=== PATIENT | male | born 1965 | race Caucasian/White ===

== ENCOUNTER 2016-05-03 11:04 | Inpatient (IN) | payer OTHER ==
[2016-05-03] MEDS ORDERED: IOPAMIDOL 370 (76%) IV.SOLN 150 ML IV ONE (11:05)
[2016-05-03 12:20] LABS: ABSOLUTE NEUTROPHIL COUNT 2.8 K/mm3 (1.8-7.7); BASO % 0.2 % (0.2-1.0); HEMATOCRIT 37.3 % (32.0-52.0); HEMOGLOBIN 11.7 gm/l (14.0-18.0); IMM NEUT% 0.2 % (0-1); LYMPH # 1.7 (1.0-4.8); MEAN CELL VOLUME 88.2 fl (80.0-94.0); MEAN CORPUSCULAR HEMOGLOBIN 27.7 pg (27.0-31.0); MEAN CORPUSCULAR HGB CONC 31.4 g/dl (33.0-37.0); MEAN PLATELET VOLUME 9.7 fl (7.4-10.4); MONO # 0.5 (0.0-0.8); MONO % 9.1 % (4-12); NEUT % 56.5 % (43-75); PLATELET COUNT 196 K/mm3 (130-400); RED CELL DISTRIBUTION WIDTH 12.8 % (11.5-14.5)
[2016-05-03 13:08] LABS: I-STAT CREATININE 0.8 mg/dL (0.6-1.3)
--- NOTE | 2016-05-03 14:00 | US ---
LEFT LOWER EXTREMITY VENOUS ULTRASOUND HISTORY: Erythema and swelling left lower leg, multiple ulcerative lesions. Sonography of the left lower extremity was performed, with a focus on the venous structures. FINDINGS: COMMON FEMORAL VEIN: Patent and compressible. SUPERFICIAL FEMORAL VEIN: Patent and compressible. POPLITEAL VEIN: Patent and compressible. PROXIMAL CALF VEINS: Patent and compressible. RESPIRATORY AUGMENTATION OF FLOW: Present. ABNORMAL FLUID COLLECTIONS: None identified. IMPRESSION: No sonographic evidence of left lower extremity deep venous thrombosis. Findings discussed with Dr. Leos of the Emergency Medicine clinical service on 05/03/2016 at 1357 hours.
[2016-05-03] MEDS ORDERED: VANCOMYCIN HCL 1.5 G in SODIUM CHLORIDE 0.9% 500 ML IV ONE (15:00)
--- NOTE | 2016-05-03 15:24 | CT ---
CTA ILIOFEMORAL RUNOFF HISTORY: Nonhealing lower extremity wounds. Following intravenous administration of 150 cc Isovue 370, contiguous axial images acquired from the lung bases to the proximal portion of the lower legs. Subsequent run performed through the lower legs. Three-dimensional imaging was not performed. COMPARISON: None. FINDINGS: ABDOMINAL AORTA: Normal caliber. Moderate atherosclerotic plaque. CELIAC TRUNK: No high grade stenosis. SUPERIOR MESENTERIC ARTERY: No high grade stenosis. RENAL ARTERIES: Single arteries bilaterally with early branching on the right. No high grade stenosis. INFERIOR MESENTERIC ARTERY: Moderate ostial narrowing. COMMON ILIAC ARTERIES: Moderate atherosclerotic calcifications, no high-grade stenosis. EXTERNAL ILIAC ARTERIES: No high grade stenosis. COMMON FEMORAL ARTERIES: No high grade stenosis. SUPERFICIAL FEMORAL ARTERIES: Multifocal plaque without high grade stenosis. POPLITEAL ARTERIES: No high grade stenosis. TRIFURCATION VESSELS: Limited evaluation on the left due to extensive venous contamination. To these limits, obvious high-grade stenosis is not identified. LOWER EXTREMITY SOFT TISSUES: Diffuse soft tissue swelling of the left lower leg, ankle and foot. Bilateral venous varicosities are identified, left greater than right. No associated rim enhancing fluid collection. SOFT TISSUE ASSESSMENT: No gross mass effect. Moderate fecal load, findings compatible with prior appendectomy. 1.1 cm right renal cyst. Enhancing inguinal lymph nodes measuring up to 2.7 cm in size at the left inguinal region, up to 2.4 cm in size on the right. A left external iliac node measures 3.4 cm in size. A left common iliac node measures 1.5 cm in size with increased number of retroperitoneal lymph nodes. OSSEOUS STRUCTURES: Mild dextroconvex curvature of the thoracolumbar spine. IMPRESSION: 1. To the limits of venous contamination at the left lower leg, no high-grade stenosis or occlusion of the aortoiliac tree or the lower extremity arterial structures. 2. Asymmetric soft tissue swelling of the left lower extremity with bilateral inguinal and left-sided pelvic adenopathy, cellulitis is possible. 3. Prominent venous collaterals, left greater than right. 4. Normal abdominal aortic caliber. Findings discussed with Dr. Wagner of the Emergency Medicine clinical service on 05/03/2016 at 1521 hours.
[2016-05-03 16:12] LABS: ALB/GLOB RATIO 0.9 (>1.0); ALBUMIN 3.4 gm/dL (3.5-5.7); CALCIUM 9.8 mg/dL (8.6-10.3)
[2016-05-03 16:15] LABS: C-REACTIVE PROTEIN 1.8 mg/dl (<1.0)
[2016-05-03] MEDS ORDERED: VANCOMYCIN HCL 0 G in SODIUM CHLORIDE 0.9% 275 ML IV SCH (16:40)
[2016-05-03] MEDS ORDERED: BISACODYL 5 MG TABLET.EC PO PRN (16:40)
[2016-05-03] MEDS ORDERED: MENTHOL/CETYLPYRD 1 EACH LOZENGE PO PRN (16:40)
[2016-05-03] MEDS ORDERED: MAGNESIUM HYDROXIDE 30 ML UDCUP PO PRN (16:40)
[2016-05-03] MEDS ORDERED: BLISTEX LIPSTICK 1 EACH TP PRN (16:40)
[2016-05-03] MEDS ORDERED: BISACODYL 10 MG SUP PR PRN (16:40)
[2016-05-03] MEDS ORDERED: SODIUM CHLORIDE 0.9% 100 ML IV PRN (16:40)
[2016-05-03 17:11] VITALS: BMI 23.8
[2016-05-03] MEDS: ENOXAPARIN SODIUM 40 MG/0.4 ML SYRINGE SUB-Q SCH (17:40)
[2016-05-03] MEDS: SODIUM CHLORIDE 0.9% 1,000 ML IV SCH (19:47)
[2016-05-03] MEDS: DOCUSATE SODIUM 100 MG CAPSULE PO SCH (20:29)
[2016-05-03] MEDS: CLOTRIMAZOLE 1% 15 APPLIC/15 G CREAM TP SCH (20:29)
--- NOTE | 2016-05-03 20:32 | HP ---
PEMA LEVY [id number] CHIEF COMPLAINT: Left leg ulceration, with increased swelling and redness of the left leg. HISTORY OF PRESENT ILLNESS: The patient is a 50-year-old male with a history of chronic venous stasis with recurrent ulcerations primarily involving his left lower extremity. He has been getting wound care at the [facility] for the last couple of weeks when he was noted to have increased drainage, redness and swelling of the left leg. He was referred to the hospital for further evaluation. Cultures of his wounds were done. He is well known to the [facility]. He was successfully able to get his wounds healed in January, but sometime in the last couple of weeks his wounds reopened-up. He states he hit his leg against a log. He is a poor historian. He has a history of developmental delay and makes his history difficult to obtain. REVIEW OF SYSTEMS: Negative for any fevers or chills. No recent upper respiratory symptoms, cough, dyspnea, wheezing, chest pain, shortness of breath or palpitations. He denies any complaints of abdominal pain, nausea, vomiting, diarrhea or constipation. No arthralgias. No urinary complaints. No headaches, fainting, blackouts or seizures. Review of systems is otherwise negative. PAST MEDICAL HISTORY: Significant for: 1. A prior hospitalization in 2006 for leg ulceration and suspected infection. He has been treated by Dr. Aurelio Sainz in the past. He has been to a counter tacker. There is no evidence of any arterial insufficiency. 2. He has a history of developmental delay. 3. He had epilepsy as a child, but he has been off his seizure medications successfully now for some time. ALLERGIES: 1. Neosporin. 2. He has developed allergic reactions to Unna boots in the past. 3. He has been sensitive to tape in the past. CURRENT MEDICATIONS: None. FAMILY HISTORY: Significant for some diabetes in the family. SOCIAL HISTORY: He smokes half a pack per day. He has smoked since he was in his 20's, totally about [id number]. He denies alcohol use. He lives with his mother in [place]. PRIMARY CARE PROVIDER: Dr. Aurelio De Jesus PHYSICAL EXAMINATION: VITAL SIGNS: Temperature 97.4. Pulse 87. Blood pressure 94/48. Respirations 16. Oxygen saturation is 100% on room air. His body mass index is 23.9 and weight is 67.1 kilograms. GENERAL: This is a well-developed and well-nourished male in no acute distress. HEENT: Unremarkable. NECK: Supple, without lymphadenopathy or thyromegaly. LUNGS: Clear to auscultation bilaterally. CARDIOVASCULAR: Reveals a regular rate and rhythm, without a murmur. ABDOMEN: Soft, nontender and nondistended, with positive bowel sounds. LOWER EXTREMITIES: Show several ulcerations on his left lower extremity. He has chronic papulosquamous skin changes, with some diffuse erythema in both lower legs, left greater than right, with a 5 x 3 cm medial dry ulceration. He has an anterior medial ulceration measuring 4 1/2 x 3 1/2 cm, also dry, and then a more lateral ulceration measuring 2 1/2 x 1 1/2 cm in a setting of papulosquamous skin changes and diffuse erythema. He also has some papulosquamous skin changes and erythema between the web spaces of the toes of both feet. He has generalized xerosis of the skin. No palpable cords are present. No Homans sign is present. NEUROLOGIC: Exam is nonfocal. DIAGNOSTIC IMAGING STUDIES: Included: 1. An ultrasound of his left lower extremity, which is negative for DVT. 2. He had a CT scan with contrast of the iliofemoral arterial system, showing no high-grade stenosis or occlusion of the aortoiliac tree or the lower extremity arterial structures. Some soft tissue swelling of the left lower extremity is present, with bilateral inguinal and left-sided pelvic adenopathy. LABORATORY STUDIES: Included a CBC with a white count of 4.9, hemoglobin 11.7 and platelet count of 196,000. Sedimentation rate is 45. Chemistry profile shows normal electrolytes. Creatinine is 0.8. Normal liver function tests. C-reactive protein is elevated at 1.8. Albumin is 3.4 and globulin is 3.9. ASSESSMENT: 1. The patient has venous stasis ulcers of his left lower extremity, with cellulitis caused by a bacterial infection, organism unknown, suspect gram-positives. Cultures of the wounds have been done and are pending. He is being treated with vancomycin per pharmacy. 2. He has a history of developmental delay, which may complicate compliance. PLAN: He is admitted to the Med-Surg unit. He will be given Lovenox for VTE prophylaxis and compression stockings. IPCs will not be used due to his ulcerations. I will put a compressive dressing over the lower leg though. Further treatment and recommendations will depend on his hospital course. cc: Dr. Aurelio De Jesus
[2016-05-04] MEDS: VANCOMYCIN HCL 1.25 G in SODIUM CHLORIDE 0.9% 250 ML IV SCH ×2 (02:53→14:25)
[2016-05-04] MEDS: SODIUM CHLORIDE 0.9% 1,000 ML IV SCH (05:41)
--- NOTE | 2016-05-04 08:14 | PDOC43 ---
- Subjective Chief Complaint: left leg pain and swelling Subjective: Reports Pain Tolerable, Reports Tolerating Diet Well, Denies Fever - Objective Vital Signs Temperature 98.5 F 05/04/16 01:30 Pulse Rate 57 05/04/16 01:30 Respiratory Rate 18 05/04/16 02:12 Blood Pressure 106/52 05/04/16 01:30 O2 Saturation by Pulse Oximetry 100 05/04/16 01:30 Oxygen Delivery Method Room Air Oxygen Flow Rate 0 Intake and Output 05/03/16 05/04/16 05/05/16 06:59 06:59 07:59 Intake Total 1685 Output Total 2125 Balance -440 General: Alert, Cooperative, No Acute Distress HEENT: Mucous membr. moist/pink, Other (poor dentition) Lungs: Clear to Auscultation Bilaterally Cardiovascular: Regular Rate and Rhythm Abdomen: Soft, Normal Bowel Sounds, Non-Distended, No Tenderness Peripheral Pulses: Posterior Tibialis (L): 1+, Posterior Tibialis (R): 2+, Dorsalis Pedis (L): 2+, Dorsalis Pedis (R): 2+ Skin: Erythema (involving entire lower leg and extending up to inguinal area but mild, see H and P for description of ulcers), Other (left leg wrapped with compressive dressing, skin is dry in general) Laboratory 05/04/16 05:30 05/04/16 05:30 Estimated GFR 120 H Current Medications: Current meds reviewed in EMR. - Problems: Assessment/Plan (1) Cellulitis Qualifiers: Site of cellulitis: extremity Site of cellulitis of extremity: lower extremity Laterality: left Qualifier Code: (L03.116) Cellulitis of left lower limb Status: AcuteAssessment/Plan: involving>50% of left lower ext likely due to GPC on Vancomycin with Cx pending- await Cx results, cont abx. (2) Venous stasis ulcer Status: AcuteAssessment/Plan: wound gel with compressive dressing applied-will need STEPS follow up (3) Cognitive developmental delay Status: AcuteAssessment/Plan: significant barrier to compliance with home care instructions VTE Prophylaxis: Lovenox Disposition: likely home in 1-2 days
[2016-05-04] MEDS: DOCUSATE SODIUM 100 MG CAPSULE PO SCH ×2 (09:14→20:13)
[2016-05-04] MEDS: CLOTRIMAZOLE 1% 15 APPLIC/15 G CREAM TP SCH ×2 (09:15→20:13)
[2016-05-04] MEDS: ENOXAPARIN SODIUM 40 MG/0.4 ML SYRINGE SUB-Q SCH (17:31)
[2016-05-04] MEDS: ACETAMINOPHEN 325 MG TABLET PO PRN (20:13)
[2016-05-05] MEDS ORDERED: PUMP TUBING ONE ×2 (03:30→21:14)
[2016-05-05] MEDS: VANCOMYCIN HCL 1.25 G in SODIUM CHLORIDE 0.9% 250 ML IV SCH ×2 (03:34→14:27)
[2016-05-05] MEDS: DOCUSATE SODIUM 100 MG CAPSULE PO SCH ×2 (09:20→20:37)
[2016-05-05] MEDS: CLOTRIMAZOLE 1% 15 APPLIC/15 G CREAM TP SCH (09:20)
--- NOTE | 2016-05-05 10:40 | PDOC43 ---
- Subjective Chief Complaint: left leg pain and swelling Feels swelling and pain has improved. C/o itching in right foot due to clotrimazole - Objective Vital Signs Temperature 98.2 F 05/05/16 07:53 Pulse Rate 66 05/05/16 07:53 Respiratory Rate 16 05/05/16 08:22 Blood Pressure 107/59 05/05/16 07:53 O2 Saturation by Pulse Oximetry 100 05/05/16 07:53 Oxygen Delivery Method Room Air Oxygen Flow Rate 0 Intake and Output 05/04/16 05/05/16 05/06/16 05:59 06:59 06:59 Intake Total Output Total Balance General: Alert, Cooperative, No Acute Distress HEENT: Mucous membr. moist/pink Lungs: Clear to Auscultation Bilaterally Cardiovascular: Regular Rate and Rhythm Abdomen: Soft, Normal Bowel Sounds, No Tenderness, No Masses Extremities: Normal Pulses, Other (left leg wraped), No Edema Skin: Rash (on right lower leg and foot) Neurological: Normal Speech Psych/Mental Status: Normal Mood Laboratory 05/04/16 05:30 Current Medications: Current meds reviewed in EMR. - Problems: Assessment/Plan (1) Cellulitis Qualifiers: Site of cellulitis: extremity Site of cellulitis of extremity: lower extremity Laterality: left Qualifier Code: (L03.116) Cellulitis of left lower limb Status: AcuteAssessment/Plan: bacterial cellulitis with lymphangitis present on admit. Treated with vancomycin and improving. Await culture results. (2) Cognitive developmental delay Status: ChronicAssessment/Plan: significant barrier to compliance with home care instructions (3) Venous stasis ulcer Status: ChronicAssessment/Plan: Leading to acute cellulitis but is a chronic condition. wound gel with compressive dressing applied-will need STEPS follow up (4) Nicotine dependence Qualifiers: Nicotine product type: cigarettes Substance use status: uncomplicated Qualifier Code: (F17.210) Nicotine dependence, cigarettes, uncomplicated Status: ChronicAssessment/Plan: stable not on replacement tx. (5) Tinea pedis Qualifiers: Laterality: right Qualifier Code: (B35.3) Tinea pedis Status: Acute Assessment/Plan: Present on admit and treated with clotrimazole, now c/o itching and appears to have excoriations, change topical antifungal and follow. VTE Prophylaxis: on enoxaparin Disposition: likely home in 1-2 days
[2016-05-05] MEDS: ENOXAPARIN SODIUM 40 MG/0.4 ML SYRINGE SUB-Q SCH (17:47)
[2016-05-05] MEDS: VANCOMYCIN HCL 1 G in SODIUM CHLORIDE 0.9% 250 ML IV SCH (22:00)
[2016-05-06] MEDS: VANCOMYCIN HCL 1 G in SODIUM CHLORIDE 0.9% 250 ML IV SCH (06:11)
[2016-05-06 06:33] VITALS: BP 103/55
[2016-05-06] MEDS ORDERED: IV START KIT ONE (07:36)
[2016-05-06] MEDS: DOCUSATE SODIUM 100 MG CAPSULE PO SCH (07:59)
[2016-05-06] MEDS ORDERED: DIPHENHYDRAMINE HCL 25 MG CAPSULE PO PRN (08:29)
[2016-05-06] MEDS: ACETAMINOPHEN 325 MG TABLET PO PRN (08:36)
[2016-05-06] MEDS ORDERED: COCONUT OIL TP PRN (09:41)
--- NOTE | 2016-05-06 11:25 | PDOC5 ---
ADMIT DATE: 05/03/16 DISCHARGE DATE: 05/06/16 ADMISSION DIAGNOSES: Venous stasis ulcers and cellulitis PROCEDURES PERFORMED THIS HOSPITALIZATION: Venous duplex left leg 05/03--no thrombosis, LLE CTA 05/03--no arterial obstruction, findings of cellulitis CONSULTATIONS: OT/PT--appropriate to return home. HOSPITAL COURSE: This is a 50 year old who has been seeing [facility] for care of venous stasis ulcers. He developed increasing redness and drainage and was referred to the hospital. He was admitted and treated with IV vancomycin. He had gradual improvement. Cultures grew MSSA and Pseudomonas. On 05/06 he is stable for discharge home on oral cephalexin and [facility]. - Exam Vital Signs Temperature 98.3 F 05/06/16 06:33 Pulse Rate 60 05/06/16 06:33 Respiratory Rate 16 05/06/16 08:09 Blood Pressure 103/55 05/06/16 06:33 O2 Saturation by Pulse Oximetry 98 05/06/16 06:33 Oxygen Delivery Method Room Air Oxygen Flow Rate 0 General: Alert, Cooperative, No Acute Distress HEENT: Mucous membr. moist/pink Lungs: Clear to Auscultation Bilaterally Cardiovascular: Regular Rate and Rhythm Abdomen: Soft, Normal Bowel Sounds, No Tenderness, No Masses Extremities: Normal Pulses, Other (left leg dressed, no erythema), No Edema Neurological: Normal Speech Psych/Mental Status: Normal Mood - Results Laboratory 05/05/16 13:40 05/05/16 13:40 Estimated GFR 103 H - Problems:Assessment/Plan (1) Cellulitis Qualifiers: Site of cellulitis: extremity Site of cellulitis of extremity: lower extremity Laterality: left Qualifier Code: (L03.116) Cellulitis of left lower limb Status: AcuteAssessment/Plan: bacterial cellulitis with lymphangitis present on admit. Cultures growing Pseudomonas which is a topical colonizing organism not causing the infection and MSSA which is the cause of infection. D/C vancomycin and change to oral cephalexin (2) Cognitive developmental delay Status: ChronicAssessment/Plan: significant barrier to compliance with home care instructions (3) Venous stasis ulcer Status: ChronicAssessment/Plan: Leading to acute cellulitis but is a chronic condition. wound gel with compressive dressing applied-will need STEPS follow up (4) Nicotine dependence Qualifiers: Nicotine product type: cigarettes Substance use status: uncomplicated Qualifier Code: (F17.210) Nicotine dependence, cigarettes, uncomplicated Status: ChronicAssessment/Plan: stable not on replacement tx. Cessation counseling (5) Tinea pedis Qualifiers: Laterality: right Qualifier Code: (B35.3) Tinea pedis Status: Acute Assessment/Plan: Present on admit and treated with clotrimazole, now c/o itching and appears to have excoriations. Defer to outpatient treatment. - Disposition: Disposition: discharge to home - Discharge Plan Prescriptions: Diphenhydramine HCl [BENADRYL 25 MG CAPSULE (SHF)] 25 mg PO Q6HR PRN #30 PRN Reason: Itching Cephalexin [KEFLEX 500 MG CAPSULE (SHF)] 500 mg PO TID #30 cap Follow-Up: Aurelio De Jesus MD [Primary Care Provider] - 05/15/16 3:00 pm STEPS [facility] [Outside] - Within 1-2 days Condition: Good Disposition: Home
== END 2016-05-06 13:05 | disposition home or self-care (01) | DRG 300 ==
LOC: ED 11:04 → MS 15:53
PROVIDERS: ADMIT Family Medicine; ATTEND Family Medicine
DX: I83.028 Varicose veins of left lower extremity with ulcer other part of lower leg (principal); L03.116 Cellulitis of left lower limb; F17.213 Nicotine dependence, cigarettes, with withdrawal; B35.3 Tinea pedis; B95.61 Methicillin susceptible Staphylococcus aureus infection as the cause of diseases classified elsewhere

== ENCOUNTER 2016-05-10 10:17 | Emergency (ER) | payer OTHER ==
[2016-05-10] MEDS ORDERED: CIPROFLOXACIN 250 MG TABLET ONE (13:03)
== END 2016-05-10 14:05 | disposition home or self-care (01) ==
LOC: ED 10:17
DX: L03.116 Cellulitis of left lower limb (principal); F17.210 Nicotine dependence, cigarettes, uncomplicated
CPT/HCPCS: 99283 ×2; A9270